=== PATIENT | male | born 1980 | race Caucasian/White ===

== ENCOUNTER 2018-01-12 15:30 | Emergency (ER) | payer OTHER, SELFPAY | END 2018-01-12 20:30 | disposition short-term general hospital (02) | PROVIDERS: Emergency Provider Emergency Medicine; Visit Provider Emergency Medicine | DX: G97.82 Other postprocedural complications and disorders of nervous system (principal) | CPT/HCPCS: 36415; 72158; 80053; 83605; 84145; 85025; 85651; 86140; 87040; 96361; 96374; 99058; 99285; A9579; J1885 ==